=== PATIENT | female | born 1970 | race Caucasian/White ===

== ENCOUNTER 2020-05-26 06:03 | Day surgery (SDC) | payer OTHER ==
[~2020-05-26 06:03] MED LIST: LEVOTHYROXINE25 MCG PO
== END 2020-05-26 13:40 | disposition home or self-care (01) ==
LOC: CIR.AMB 06:03
PROVIDERS: ATTEND Obstetrics & Gynecology
DX: N84.0 Polyp of corpus uteri (principal); Z20.828 Contact with and (suspected) exposure to other viral communicable diseases

== ENCOUNTER 2024-02-27 06:00 | Day surgery (SDC) | payer OTHER ==
[~2024-02-27 06:00] MED LIST changes: +MAGNESIUM200 MG PO; +PROMETRIUM200 MG PO
[2024-02-27] MEDS ORDERED: POVIDONE-IODINE 118 ML BOTT TOP ONE (09:15)
[2024-02-27] MEDS ORDERED: KETOROLAC TROMETHAMINE 30 MG VIAL IV ONE (09:30)
== END 2024-02-27 14:40 | disposition home or self-care (01) ==
LOC: CIR.AMB 06:00
PROVIDERS: ATTEND Obstetrics & Gynecology
DX: D25.0 Submucous leiomyoma of uterus (principal); N95.0 Postmenopausal bleeding; E03.9 Hypothyroidism, unspecified